=== PATIENT | female | born 1935 | race Asian ===

== ENCOUNTER 2022-01-25 14:15 | Inpatient (IN) | payer MEDICARE, OTHER ==
[~2022-01-25] VITALS: Ht 160 cm; Wt 48.9 kg
[2022-01-25] MEDS ORDERED: IOHEXOL 350 MG/ML 100 ML VIAL ONE (14:31)
[2022-01-25] MEDS ORDERED: SODIUM CHLORIDE 0.9% 100 ML ONE ×2 (14:32→15:31)
[2022-01-25 14:38] LABS: BASOPHILS % (AUTO) 0.9 % (0.0-2.0); EOSINOPHILS % (AUTO) 0.7 % (1.0-6.0); HEMATOCRIT 41.1 % (36-46); HEMOGLOBIN 13.3 g/dL (12.0-16.0); LYMPHOCYTES # (AUTO) 1.3 K/uL (1.0-4.8); MEAN CORPUSCULAR HEMOGLOBIN 29.7 pg (26.0-34.0); MEAN CORPUSCULAR HGB CONC 32.3 G/dL (31.0-37.0); MEAN CORPUSCULAR VOLUME 92 fL (80-100); MONOCYTES # (AUTO) 0.8 K/uL (0.1-1.0); MONOCYTES % (AUTO) 9.4 % (2.0-9.0); NEUTROPHILS # (AUTO) 5.9 K/uL (1.8-7.7); PLATELET COUNT (AUTO) 184 K/uL (150-450); RED BLOOD CELL COUNT(AUTO) 4.46 MIL/uL (4.00-5.20)
[2022-01-25] MEDS ORDERED: ALTEPLASE PER STROKE PROTOCOL CLINICAL ONE (14:45)
[2022-01-25 14:47] LABS: ANION GAP 6 mmol/L (8-16); CALCIUM, TOTAL 9.4 mg/dL (8.8-10.5); CARBON DIOXIDE 30 mmol/L (22-29); CHLORIDE 100 mmol/L (98-107); CREATININE 0.77 mg/dL (0.60-1.30); GLUCOSE,RANDOM 134 mg/dL (70-110); SODIUM SERUM 136 mmol/L (136-145); UREA NITROGEN, BLOOD 12 mg/dL (7-18)
[2022-01-25 14:52] LABS: GLOMERULAR FILTR. RATE CALC > 60 mL/min (>60)
[2022-01-25 14:53] LABS: ALANINE AMINOTRANSFERASE 12 U/L (12-78); ALBUMIN 3.6 g/dL (3.4-5.0); ALKALINE PHOSPHATASE 102 U/L (46-116); ASPARTATE AMINOTRANSFERASE 28 U/L (15-37); BILIRUBIN,TOTAL 0.4 mg/dL (0.1-1.0)
[2022-01-25] MEDS ORDERED: WATER FOR INJECTION STERILE IV ONE ×2 (15:00)
[2022-01-25] MEDS ORDERED: ALTEPLASE IV ONE ×2 (15:00)
[2022-01-25 15:01] LABS: PROTHROMBIN TIME 10.3 SEC (9.4-11.6)
[2022-01-25] MEDS ORDERED: ONDANSETRON HCL 4 MG/2 ML VIAL IVP PRN (15:15)
[2022-01-25] MEDS ORDERED: BISACODYL 10 MG RECTAL RECTAL SUPPOSITORY PR PRN (15:15)
[2022-01-25 15:39] LABS: CHOL/HDL RATIO 1.6 (3.9-5.7)
[2022-01-25] MEDS: PANTOPRAZOLE SODIUM 40 MG/VIAL IVP SCH (16:38)
[2022-01-25 16:43] LABS: COVID AG,FIA SOURCE NASOPHARYNGEAL
[2022-01-25 20:01] LABS: GLUCOMETER DEV NAME(LOC) ERT.5; GLUCOSE,POINT OF CARE 170 MG/DL (70-110)
[2022-01-25 20:05] LABS: APPEARANCE,URINE CLEAR (CLEAR); BILIRUBIN,URINE NEGATIVE (NEGATIVE); GLUCOSE, URINE (UA) NEGATIVE (NEGATIVE); KETONES,URINE NEGATIVE (NEGATIVE); LEUKOCYTE ESTERASE ,URINE NEGATIVE (NEGATIVE); NITRATE,URINE NEGATIVE (NEGATIVE); OCCULT BLOOD,URINE NEGATIVE (NEGATIVE); PH,URINE 7.5 (5.0-8.0); PROTEIN,URINE 30-70 mg/dL (NEGATIVE); SPECIFIC GRAVITIY, URINE 1.026 (1.003-1.030); UROBILINOGEN,URINE <=1.0 mg/dL (<=1.0)
[2022-01-25 20:18] LABS: AMORPHOUS SEDIMENT,UR Few /LPF (None Seen); BACTERIA,URINE Few /HPF (None Seen); RBC,URINE 0-2 /HPF (0-2); WBC,URINE 0-2 /HPF (0-5)
[2022-01-25] MEDS ORDERED: ACETAMINOPHEN 1000 MG/ISO-OSM 100 ML IV ONE (20:30)
[2022-01-25] MEDS ORDERED: SODIUM CHLORIDE 0.9% 1,400 ML IV ONE (22:00)
[2022-01-25] MEDS: PIPERACILLIN SODIUM/TAZOBACTAM 2.25 GM in DEXTROSE 5%-WATER 50 ML IV SCH (22:49)
[2022-01-26] MEDS: PIPERACILLIN SODIUM/TAZOBACTAM 2.25 GM in DEXTROSE 5%-WATER 50 ML IV SCH ×4 (05:12→23:43)
[2022-01-26 06:22] LABS: BASOPHILS % (AUTO) 1.3 % (0.0-2.0); EOSINOPHILS % (AUTO) 0.1 % (1.0-6.0); HEMATOCRIT 39.2 % (36-46); HEMOGLOBIN 12.9 g/dL (12.0-16.0); LYMPHOCYTES # (AUTO) 1.3 K/uL (1.0-4.8); LYMPHOCYTES % (AUTO) 13.6 % (22.0-44.0); MEAN CORPUSCULAR HGB CONC 32.8 G/dL (31.0-37.0); MEAN CORPUSCULAR VOLUME 91 fL (80-100); MONOCYTES # (AUTO) 1.3 K/uL (0.1-1.0); MONOCYTES % (AUTO) 12.8 % (2.0-9.0); NEUTROPHILS # (AUTO) 7.1 K/uL (1.8-7.7); NEUTROPHILS % (AUTO) 72.2 % (40.0-70.0); PLATELET COUNT (AUTO) 163 K/uL (150-450); RED BLOOD CELL COUNT(AUTO) 4.29 MIL/uL (4.00-5.20)
[2022-01-26 06:32] LABS: ANION GAP 8 mmol/L (8-16); CALCIUM, TOTAL 8.4 mg/dL (8.8-10.5); CARBON DIOXIDE 28 mmol/L (22-29); CHLORIDE 101 mmol/L (98-107); CREATININE 0.82 mg/dL (0.60-1.30); GLUCOSE,RANDOM 157 mg/dL (70-110); POTASSIUM 3.1 mmol/L (3.5-5.1); SODIUM SERUM 137 mmol/L (136-145); UREA NITROGEN, BLOOD 15 mg/dL (7-18)
[2022-01-26 06:49] LABS: GLOMERULAR FILTR. RATE CALC > 60 mL/min (>60)
[2022-01-26 08:00] VITALS: BP 104/68
[2022-01-26] MEDS: PANTOPRAZOLE SODIUM 40 MG/VIAL IVP SCH (09:12)
[2022-01-26] MEDS: ATORVASTATIN CALCIUM 40 MG TABLET PO SCH (09:13)
[2022-01-26] MEDS: POTASSIUM CHL 10 MEQ/WATER 50 ML IV PRN ×2 (11:24→12:35)
[2022-01-26 12:00] VITALS: BP 155/75
[2022-01-26] MEDS: ACETAMINOPHEN 325 MG TABLET PO PRN (13:21)
[2022-01-26 16:00] VITALS: BP 130/81
[2022-01-26 20:00] VITALS: BP 137/78
[2022-01-27] VITALS: BP 127/66
[2022-01-27 04:00] VITALS: BP 111/61
[2022-01-27] MEDS: PIPERACILLIN SODIUM/TAZOBACTAM 2.25 GM in DEXTROSE 5%-WATER 50 ML IV SCH ×4 (04:40→22:29)
[2022-01-27] MEDS: ACETAMINOPHEN 325 MG TABLET PO PRN (04:40)
[2022-01-27] MEDS ORDERED: DILTIAZEM HCL 5 MG/ML 5 ML VIAL IVP ONE (05:30)
[2022-01-27 06:27] LABS: EOSINOPHILS % (AUTO) 0.9 % (1.0-6.0); HEMATOCRIT 40.5 % (36-46); LYMPHOCYTES # (AUTO) 1.5 K/uL (1.0-4.8); LYMPHOCYTES % (AUTO) 20.5 % (22.0-44.0); MEAN CORPUSCULAR HEMOGLOBIN 29.8 pg (26.0-34.0); MEAN CORPUSCULAR HGB CONC 32.1 G/dL (31.0-37.0); MEAN CORPUSCULAR VOLUME 93 fL (80-100); MONOCYTES # (AUTO) 0.8 K/uL (0.1-1.0); NEUTROPHILS % (AUTO) 66.6 % (40.0-70.0); PLATELET COUNT (AUTO) 163 K/uL (150-450); RED BLOOD CELL COUNT(AUTO) 4.35 MIL/uL (4.00-5.20); RED CELL DISTRIBUTION WIDTH 13.2 % (11.5-14.5)
[2022-01-27 06:43] LABS: ALBUMIN 3.3 g/dL (3.4-5.0); BILIRUBIN,TOTAL 0.8 mg/dL (0.1-1.0); CALCIUM, TOTAL 8.4 mg/dL (8.8-10.5); CREATININE 0.92 mg/dL (0.60-1.30); POTASSIUM 3.4 mmol/L (3.5-5.1); TOTAL PROTEIN, SERUM 7.1 g/dL (6.4-8.2)
[2022-01-27 08:00] VITALS: BP 142/79
[2022-01-27] MEDS ORDERED: DIGOXIN 250 MCG/ML 2 ML AMP IVP ONE (08:45)
[2022-01-27] MEDS ORDERED: AMIODARONE HCL 200 MG TABLET PO SCH (09:00)
[2022-01-27] MEDS ORDERED: APIXABAN 5 MG TABLET PO SCH (09:00)
[2022-01-27] MEDS: AMIODARONE HCL 200 MG TABLET PO SCH ×3 (09:26→21:34)
[2022-01-27] MEDS: POTASSIUM CHLORIDE 20 MEQ ER TABLET PO PRN (09:26)
[2022-01-27] MEDS: PANTOPRAZOLE SODIUM 40 MG/VIAL IVP SCH (09:26)
[2022-01-27] MEDS: ATORVASTATIN CALCIUM 40 MG TABLET PO SCH (09:26)
[2022-01-27] MEDS ORDERED: SODIUM CHLORIDE 0.9% 0 ML IV ONE (11:29)
[2022-01-27 12:00] VITALS: BP 125/70
[2022-01-27 16:00] VITALS: BP 134/68
[2022-01-27 20:00] VITALS: BP 145/69
[2022-01-27] MEDS: APIXABAN 2.5 MG TABLET PO SCH (21:34)
[2022-01-27] MEDS ORDERED: SODIUM CHLORIDE 0.9% 250 ML IV ONE (21:43)
[2022-01-27] MEDS: HydrALAZINE HCL 20 MG/ML VIAL IVP PRN (22:29)
[2022-01-28] VITALS: BP 141/71
[2022-01-28 04:00] VITALS: BP 152/78
[2022-01-28] MEDS: PIPERACILLIN SODIUM/TAZOBACTAM 2.25 GM in DEXTROSE 5%-WATER 50 ML IV SCH ×4 (04:24→23:10)
[2022-01-28 05:31] LABS: BASOPHILS % (AUTO) 0.9 % (0.0-2.0); EOSINOPHILS % (AUTO) 1.9 % (1.0-6.0); HEMATOCRIT 35.3 % (36-46); HEMOGLOBIN 11.7 g/dL (12.0-16.0); LYMPHOCYTES # (AUTO) 0.9 K/uL (1.0-4.8); LYMPHOCYTES % (AUTO) 18.3 % (22.0-44.0); MEAN CORPUSCULAR HEMOGLOBIN 29.9 pg (26.0-34.0); MEAN CORPUSCULAR HGB CONC 33.1 G/dL (31.0-37.0); MEAN CORPUSCULAR VOLUME 90 fL (80-100); MONOCYTES # (AUTO) 0.6 K/uL (0.1-1.0); MONOCYTES % (AUTO) 12.2 % (2.0-9.0); NEUTROPHILS # (AUTO) 3.3 K/uL (1.8-7.7); NEUTROPHILS % (AUTO) 66.7 % (40.0-70.0); PLATELET COUNT (AUTO) 162 K/uL (150-450); RED CELL DISTRIBUTION WIDTH 13.3 % (11.5-14.5)
[2022-01-28 05:43] LABS: ALANINE AMINOTRANSFERASE 12 U/L (12-78); ALBUMIN 2.9 g/dL (3.4-5.0); ALKALINE PHOSPHATASE 78 U/L (46-116); ANION GAP 6 mmol/L (8-16); ASPARTATE AMINOTRANSFERASE 19 U/L (15-37); BILIRUBIN,TOTAL 0.5 mg/dL (0.1-1.0); CALCIUM, TOTAL 8.3 mg/dL (8.8-10.5); CARBON DIOXIDE 30 mmol/L (22-29); CHLORIDE 104 mmol/L (98-107); CREATININE 0.81 mg/dL (0.60-1.30); GLUCOSE,RANDOM 194 mg/dL (70-110); POTASSIUM 3.5 mmol/L (3.5-5.1); SODIUM SERUM 140 mmol/L (136-145); TOTAL PROTEIN, SERUM 6.5 g/dL (6.4-8.2); UREA NITROGEN, BLOOD 15 mg/dL (7-18)
[2022-01-28 05:47] LABS: GLOMERULAR FILTR. RATE CALC > 60 mL/min (>60)
[2022-01-28 07:00] VITALS: BP 172/82
[2022-01-28] MEDS: ATORVASTATIN CALCIUM 40 MG TABLET PO SCH (08:45)
[2022-01-28] MEDS: POTASSIUM CHLORIDE 20 MEQ ER TABLET PO PRN (08:45)
[2022-01-28] MEDS: AMIODARONE HCL 200 MG TABLET PO SCH ×3 (08:45→20:46)
[2022-01-28] MEDS: APIXABAN 2.5 MG TABLET PO SCH ×2 (08:45→20:47)
[2022-01-28] MEDS: PANTOPRAZOLE SODIUM 40 MG/VIAL IVP SCH (08:46)
[2022-01-28] MEDS: HydrALAZINE HCL 20 MG/ML VIAL IVP PRN (09:04)
[2022-01-28] MEDS ORDERED: SODIUM CHLORIDE 0.9% 500 ML IV ONE (10:32)
[2022-01-28 11:05] VITALS: BP 144/70
[2022-01-28 14:55] VITALS: BP 166/91
[2022-01-28 20:37] VITALS: BP_SYST 145; BP_SYST 154; BP_DIAS 60; BP_DIAS 93
[2022-01-28] MEDS: METOPROLOL TARTRATE 25 MG TABLET PO SCH (20:47)
[2022-01-29 00:10] VITALS: BP 164/93
[2022-01-29 04:48] VITALS: BP 145/82
[2022-01-29] MEDS: PIPERACILLIN SODIUM/TAZOBACTAM 2.25 GM in DEXTROSE 5%-WATER 50 ML IV SCH ×4 (05:15→23:08)
[2022-01-29 07:07] LABS: ANION GAP 8 mmol/L (8-16); CALCIUM, TOTAL 8.6 mg/dL (8.8-10.5); CARBON DIOXIDE 27 mmol/L (22-29); CHLORIDE 103 mmol/L (98-107); CREATININE 0.65 mg/dL (0.60-1.30); GLUCOSE,RANDOM 154 mg/dL (70-110); POTASSIUM 3.7 mmol/L (3.5-5.1); SODIUM SERUM 138 mmol/L (136-145); UREA NITROGEN, BLOOD 8 mg/dL (7-18)
[2022-01-29 07:10] LABS: GLOMERULAR FILTR. RATE CALC > 60 mL/min (>60)
[2022-01-29 08:00] VITALS: BP 158/84
[2022-01-29] MEDS: APIXABAN 2.5 MG TABLET PO SCH ×2 (09:20→20:12)
[2022-01-29] MEDS: ATORVASTATIN CALCIUM 40 MG TABLET PO SCH (09:20)
[2022-01-29] MEDS: METOPROLOL TARTRATE 25 MG TABLET PO SCH ×2 (09:20→20:12)
[2022-01-29] MEDS: AMIODARONE HCL 200 MG TABLET PO SCH ×3 (09:20→20:12)
[2022-01-29] MEDS: PANTOPRAZOLE SODIUM 40 MG/VIAL IVP SCH (09:20)
[2022-01-29] MEDS ORDERED: APIX2.5T PO (14:37)
[2022-01-29] MEDS ORDERED: ATOR40TA28 PO (14:37)
[2022-01-29] MEDS ORDERED: AMIO200T68 PO (14:37)
[2022-01-29] MEDS ORDERED: METO25 PO (14:39)
[2022-01-29] MEDS ORDERED: PANT40VI14 IVP (14:39)
[2022-01-29 16:37] LABS: COVID AG,FIA SOURCE NASOPHARYNGEAL
[2022-01-29 20:15] VITALS: BP 164/86
[2022-01-30] MEDS: HydrALAZINE HCL 20 MG/ML VIAL IVP PRN ×2 (00:10→16:22)
[2022-01-30 00:22] VITALS: BP 187/89
[2022-01-30] MEDS: PIPERACILLIN SODIUM/TAZOBACTAM 2.25 GM in DEXTROSE 5%-WATER 50 ML IV SCH ×3 (04:59→17:00)
[2022-01-30 05:47] VITALS: BP 163/80
[2022-01-30 07:21] VITALS: BP 161/92
[2022-01-30] MEDS: AMIODARONE HCL 200 MG TABLET PO SCH ×2 (08:15→16:09)
[2022-01-30] MEDS: ATORVASTATIN CALCIUM 40 MG TABLET PO SCH (08:15)
[2022-01-30] MEDS: PANTOPRAZOLE SODIUM 40 MG/VIAL IVP SCH (08:16)
[2022-01-30] MEDS: APIXABAN 2.5 MG TABLET PO SCH (08:16)
[2022-01-30] MEDS: METOPROLOL TARTRATE 25 MG TABLET PO SCH (08:16)
[2022-01-30 11:42] VITALS: BP 147/78
[2022-01-30 15:50] VITALS: BP 170/87
== END 2022-01-30 18:10 | DRG 61 ==
LOC: EMS 14:15 → ICU 01-26 06:42 → 5N 01-28 06:10
PROVIDERS: ADMIT Internal Medicine; ATTEND Internal Medicine
DX: I63.9 Cerebral infarction, unspecified (principal); E43 Unspecified severe protein-calorie malnutrition; Z68.1 Body mass index [BMI] 19.9 or less, adult; G81.94 Hemiplegia, unspecified affecting left nondominant side; E11.9 Type 2 diabetes mellitus without complications; F03.90 Unspecified dementia, unspecified severity, without behavioral disturbance, psychotic disturbance, mood disturbance, and anxiety; I48.0 Paroxysmal atrial fibrillation; I49.5 Sick sinus syndrome; R47.01 Aphasia; M06.9 Rheumatoid arthritis, unspecified; I45.10 Unspecified right bundle-branch block; I10 Essential (primary) hypertension; Z20.822 Contact with and (suspected) exposure to COVID-19; E87.6 Hypokalemia; R29.714 NIHSS score 14; Z79.01 Long term (current) use of anticoagulants; Z95.0 Presence of cardiac pacemaker; Z88.5 Allergy status to narcotic agent; Z88.8 Allergy status to other drugs, medicaments and biological substances
CPT/HCPCS: 51702; 70450; 70496; 70498; 71045; 80048; 80053; 80061; 81001; 82962; 83036; 83605; 83735; 84132; 84484; 85025; 85610; 87040; 87081; 92507; 92526; 92610; 93005; 93306; 97110; 97116; 97162; 97167; 97530; 97535; 99291; C9113; G0378; J0131; J0360; J1160; J2405; J2543; J2997; J3480; J3490; J7030; J7040; J7050; J7060; Q9967; 36415-L1; 36415-TC

== ENCOUNTER 2022-02-27 23:24 | Emergency (ER) | payer MEDICARE, OTHER ==
[~2022-02-27] VITALS: Ht 165.1 cm; Wt 51.1 kg
[~2022-02-27 23:24] MED LIST: AMIO200T68 PO; APIX2.5T PO; ATOR40TA28 PO; METO25 PO; PANT40VI14 IVP
[2022-02-28 00:52] LABS: HEMOGLOBIN 13.2 g/dL (12.0-16.0); MONOCYTES # (AUTO) 0.8 K/uL (0.1-1.0); MONOCYTES % (AUTO) 9.7 % (2.0-9.0); NEUTROPHILS # (AUTO) 6.4 K/uL (1.8-7.7)
[2022-02-28 00:56] LABS: BASOPHILS % (AUTO) 0.6 % (0.0-2.0); EOSINOPHILS % (AUTO) 0.7 % (1.0-6.0); HEMATOCRIT 40.1 % (36-46); LYMPHOCYTES # (AUTO) 0.9 K/uL (1.0-4.8); LYMPHOCYTES % (AUTO) 11.3 % (22.0-44.0); MEAN CORPUSCULAR HEMOGLOBIN 30.2 pg (26.0-34.0); MEAN CORPUSCULAR HGB CONC 32.8 G/dL (31.0-37.0); MEAN CORPUSCULAR VOLUME 92 fL (80-100); NEUTROPHILS % (AUTO) 77.7 % (40.0-70.0); PLATELET COUNT (AUTO) 252 K/uL (150-450); RED BLOOD CELL COUNT(AUTO) 4.37 MIL/uL (4.00-5.20)
[2022-02-28 01:02] LABS: ANION GAP 8 mmol/L (8-16); CALCIUM, TOTAL 9.3 mg/dL (8.8-10.5); CARBON DIOXIDE 32 mmol/L (22-29); CHLORIDE 102 mmol/L (98-107); CREATININE 0.86 mg/dL (0.60-1.30); GLUCOSE,RANDOM 195 mg/dL (70-110); POTASSIUM 3.7 mmol/L (3.5-5.1); SODIUM SERUM 142 mmol/L (136-145); UREA NITROGEN, BLOOD 19 mg/dL (7-18)
[2022-02-28 01:03] LABS: GLOMERULAR FILTR. RATE CALC > 60 mL/min (>60)
[2022-02-28 01:10] LABS: INR 1.1 (0.9-1.1); PROTHROMBIN TIME 11.4 SEC (9.4-11.6)
[2022-02-28 01:12] LABS: ALANINE AMINOTRANSFERASE 17 U/L (12-78); ALBUMIN 3.1 g/dL (3.4-5.0); ALKALINE PHOSPHATASE 134 U/L (46-116); ASPARTATE AMINOTRANSFERASE 26 U/L (15-37); BILIRUBIN,TOTAL 0.5 mg/dL (0.1-1.0); CREATINE KINASE, TOTAL ONLY 73 U/L (26-192); TOTAL PROTEIN, SERUM 7.1 g/dL (6.4-8.2)
[2022-02-28 01:33] LABS: B-TYPE NATRIURETIC PEPTIDE 75 pg/mL (0-100)
[2022-02-28 03:40] LABS: APPEARANCE,URINE CLEAR (CLEAR); BILIRUBIN,URINE NEGATIVE (NEGATIVE); GLUCOSE, URINE (UA) 70-100 mg/dL (NEGATIVE); KETONES,URINE NEGATIVE (NEGATIVE); LEUKOCYTE ESTERASE ,URINE NEGATIVE (NEGATIVE); NITRATE,URINE NEGATIVE (NEGATIVE); OCCULT BLOOD,URINE NEGATIVE (NEGATIVE); PROTEIN,URINE 30-70 mg/dL (NEGATIVE); SPECIFIC GRAVITIY, URINE 1.009 (1.003-1.030); UROBILINOGEN,URINE <=1.0 mg/dL (<=1.0)
[2022-02-28 03:55] LABS: BACTERIA,URINE None Seen /HPF (None Seen); RBC,URINE None Seen /HPF (0-2); SQUAMOUS EPITHELIAL CELL,UR None Seen /LPF (None Seen); WBC,URINE 0-2 /HPF (0-5)
[2022-02-28] MEDS ORDERED: TraZODone HCL 50 MG TABLET PO ONE (04:00)
[2022-02-28] MEDS ORDERED: HydrALAZINE HCL 25 MG TABLET PO ONE (05:15)
[2022-02-28] MEDS ORDERED: METOPROLOL TARTRATE 50 MG TABLET PO ONE (05:15)
[2022-02-28 08:13] VITALS: BP 156/74
== END 2022-02-28 08:26 | disposition home or self-care (01) ==
LOC: EMS 23:24
DX: I10 Essential (primary) hypertension (principal); I48.91 Unspecified atrial fibrillation; E11.9 Type 2 diabetes mellitus without complications; F03.90 Unspecified dementia, unspecified severity, without behavioral disturbance, psychotic disturbance, mood disturbance, and anxiety; Z96.89 Presence of other specified functional implants; Z88.5 Allergy status to narcotic agent; Z88.8 Allergy status to other drugs, medicaments and biological substances
CPT/HCPCS: 71045; 80053; 81001; 82550; 83880; 84484; 85025; 85610; 85730; 93005; 99285; 36415-L1; 36415-TC